=== PATIENT | female | born 1995 | race Native Hawaiian/Other Pacific Islander ===

== ENCOUNTER 2021-11-11 23:35 | Emergency (ER) | payer OTHER ==
[~2021-11-11] VITALS: Ht 149.9 cm; Wt 104.3 kg
[2021-11-12 00:25] VITALS: BP 141/95; TEMP 99.1
== END 2021-11-12 00:30 | disposition home or self-care (01) ==
LOC: ED 23:35
DX: K04.7 Periapical abscess without sinus (principal)
CPT/HCPCS: 96372; 99283; J0696; J1885